=== PATIENT | female | born 1940 | race Asian ===

== ENCOUNTER → 2016-09-13 | Outpatient (CLI) | payer MEDICARE ==
[~2016-09-13] MED LIST: CATAPRES0.1 MG ORAL; COQ-10100 M1 PO; FISH OIL300 M1 PO; FUROSEMIDE20 M1 ORAL; METFORMIN HCL500 M1 ORAL; SIMVASTATIN10 MG ORAL; VITAMIN B125000 MCG PO; VITAMIN D400 INTLU ORAL; WELLBUTRIN XL150 MG ORAL
[2016-09-13 09:54] VITALS: BP 141/79
--- NOTE | 2016-09-13 10:25 | GI Progress Note ---
Assessment/Plan Problems: (1) Weight loss, unintentional ICD Codes: R63.4 - Abnormal weight loss SNOMED: 218383102 (2) Constipation ICD Codes: K59.00 - Constipation, unspecified SNOMED: 87544497 (3) Abdominal bloating ICD Codes: R14.0 - Abdominal distension (gaseous) SNOMED: 929394533 Status: stable Status Narrative Seen with Dr. Martinez. Assessment/Plan CT negative >> reviewed with patient rx miralax recommended Align recommend EUS to evaluate CBD >> pt asymptomatic and refused at this time RTC x 1 month Subjective Subjective states her weight loss as stabilized, probably gaining weight mild constipation abdominal bloating with min relief from gas X seen by Dr. Alcazar 5 days ago, RTC to d/w gallstones. Objective Last 24 Hour Vital Signs Date Time Temp Pulse Resp B/P Pulse Ox O2 Delivery O2 Flow Rate FiO2 09/13/16 09:54 97.7 82 16 141/79 General Appearance: no apparent distress, alert Cardiovascular: normal rate Respiratory/Chest: normal breath sounds, no respiratory distress Abdominal Exam: normal bowel sounds, non tender, soft Extremities: normal range of motion Objective Procedure: CT Chest Abdomen Pelvis W/Cont Indication: Weight loss Impression: No malignancy demonstrated on this examination. Note is made of a few tiny subcentimeter nodes in the right lower quadrant mesentery nonspecific. Right staghorn calculus Atherosclerotic vascular disease Gallstones Status post hysterectomy 7.4 CM left renal cyst Cecille Martínez NMina Sep 13, 2016 10:25
== END | disposition home or self-care (01) ==
LOC: PAN 09:12
DX: K59.00 Constipation, unspecified (principal); R14.0 Abdominal distension (gaseous); R63.4 Abnormal weight loss; I25.10 Atherosclerotic heart disease of native coronary artery without angina pectoris; K80.80 Other cholelithiasis without obstruction; Z90.710 Acquired absence of both cervix and uterus; N20.0 Calculus of kidney
CPT/HCPCS: 99211

== ENCOUNTER → 2016-10-11 | Outpatient (CLI) | payer MEDICARE ==
--- NOTE | 2016-10-11 11:50 | GI Progress Note ---
Assessment/Plan Problems: (1) Abdominal bloating ICD Codes: R14.0 - Abdominal distension (gaseous) SNOMED: 668023213 (2) Constipation ICD Codes: K59.00 - Constipation, unspecified SNOMED: 47301191 (3) Weight loss, unintentional ICD Codes: R63.4 - Abnormal weight loss SNOMED: 408919636 (4) Hemorrhoids, internal ICD Codes: K64.8 - Other hemorrhoids SNOMED: 87923539 (5) Gastritis ICD Codes: K29.70 - Gastritis, unspecified, without bleeding SNOMED: 3970227 Status: stable Status Narrative Seen with Dr. Martinez.. Assessment/Plan [place] CT negative >> reviewed with patient miralax prn recommended Align recommend EUS to evaluate CBD/gallstones >> pt asymptomatic and refused at this time RTC x 6 months Subjective Subjective abdominal pain, asymptomatic constipation better, not taking miralax abdominal bloating improved, not taking gas X did not take Align due to cost refused EUS for gallstone evaluation denies weight loss Objective T 97 BP 129/95 P 76 98 RA General Appearance: no apparent distress, alert Cardiovascular: normal rate Respiratory/Chest: normal breath sounds, no respiratory distress Abdominal Exam: normal bowel sounds, non tender, soft Extremities: normal range of motion Objective 08/05/16 Procedure: CT Chest Abdomen Pelvis W/Cont Indication: Weight loss Impression: No malignancy demonstrated on this examination. Note is made of a few tiny subcentimeter nodes in the right lower quadrant mesentery nonspecific. Right staghorn calculus Atherosclerotic vascular disease Gallstones Status post hysterectomy 7.4 CM left renal cyst Cecille Martínez NHerbPHerb Oct 11, 2016 11:50
[2016-10-11 13:46] VITALS: BP 126/95
== END | disposition home or self-care (01) ==
LOC: PAN 10:19
DX: R14.0 Abdominal distension (gaseous) (principal); K59.00 Constipation, unspecified; R63.4 Abnormal weight loss; K64.8 Other hemorrhoids; K29.70 Gastritis, unspecified, without bleeding; I25.10 Atherosclerotic heart disease of native coronary artery without angina pectoris; Z90.710 Acquired absence of both cervix and uterus
CPT/HCPCS: 99211